=== PATIENT | female | born 1985 | race Caucasian/White ===

== ENCOUNTER 2016-07-22 06:33 | Emergency (ER) | payer MEDICAID ==
[~2016-07-22] VITALS: Ht 162.6 cm; Wt 48.2 kg
[~2016-07-22 06:33] MED LIST: METH40TA3 PO
[2016-07-22 06:36] VITALS: BP 144/96
== END 2016-07-22 07:42 | disposition left against medical advice (07) ==
LOC: ED 07:36
DX: R05 Cough (principal); R50.9 Fever, unspecified; R09.89 Other specified symptoms and signs involving the circulatory and respiratory systems; Z53.21 Procedure and treatment not carried out due to patient leaving prior to being seen by health care provider